=== PATIENT | male | born 1975 | race Caucasian/White ===

== ENCOUNTER 2019-05-28 13:28 | Inpatient (IN) | payer BC, OTHER ==
[~2019-05-28] VITALS: Ht 165.1 cm; Wt 55.7 kg
[~2019-05-28 13:28] MED LIST: NO HOME MEDS
--- NOTE | 2019-05-28 14:40 | NUR ---
PT HERE WITH FAMILY AND BOSS, [facility] AT 1307 PT HAD A WITNESSED SEIZURE LASTING APPROX. 1 MINUTE, BOSS DENIES PT HITTING HEAD AND INCONTINENCE. THIS RN AT BEDSIDE AND SEIZURE PADS APPLIED. PT STARTED CONVULSING, APPROX. 15 SECONDS, VITALS STABLE THROUGHOUT, NO INCONTINENCE OR ORAL TRAUMA, NO LOC, PT'S EYES REMAINED OPEN THE ENTIRE TIME. PT DRESSED IN GOWN AND ON FULL MONITOR, PIV ESTABLISHED AND LABS DRAWN. SIDERAIL X [address], ROOM AIR, NAD, PT CONFUSED TO LOCATION AND TIME, SUCTION AT BEDSIDE AND WITHIN REACH NEEDED.
[2019-05-28 14:52] LABS: BASOPHILS # (AUTO) 0.05 x10^3/uL (0-0.1); BASOPHILS % (AUTO) 1 % (0-1); EOSINOPHILS # (AUTO) 0.04 x10^3/uL (0-0.4); EOSINOPHILS % (AUTO) 1 % (1-7); LYMPHOCYTES # (AUTO) 1.38 x10^3/uL (1-3.4); LYMPHOCYTES % (AUTO) 20 % (22-44); MD NO; MEAN CORPUSCULAR HEMOGLOBIN 27.9 pg (27.5-34.5); MEAN CORPUSCULAR HGB CONC 33.2 g/dL (33.2-36.2); MEAN CORPUSCULAR VOLUME 83.8 fL (81-97); MEAN PLATELET VOLUME 7.9 fL (7.4-10.4); MONOCYTES # (AUTO) 0.41 x10^3/uL (0.2-0.8); MONOCYTES % (AUTO) 6 % (2-9); NEUTROPHILS # (AUTO) 5.15 x10^3/uL (1.8-6.8); NEUTROPHILS % (AUTO) 73 % (42-75); PLATELET COUNT 259 x10^3/uL (130-400); RED BLOOD COUNT 5.49 x10^6/uL (4.38-5.82); RED CELL DISTRIBUTION WIDTH 12.8 % (9.4-14.8)
--- NOTE | 2019-05-28 14:55 | NUR ---
MD AT BEDSIDE FOR EXAM. PT TO CT.
[2019-05-28 14:59] LABS: ALBUMIN 4.2 g/dL (3.4-5.0); ANION GAP 11 mmol/L (5-15); CHLORIDE 108 mmol/L (98-107); CREATININE 1.15 mg/dL (0.7-1.3)
[2019-05-28] MEDS ORDERED: HYDROcodone/APAP 5/325 TABLET PO ONE (15:00)
--- NOTE | 2019-05-28 15:26 | NUR ---
REPORT GIVEN TO NEIDA, CARE TRANSFERRED.
[2019-05-28] MEDS ORDERED: LEVETIRACETAM 1,000 MG in SODIUM CHLORIDE 0.9% 100 ML IV ONE (15:30)
[2019-05-28] MEDS ORDERED: LEVETIRACETAM 500 MG in SODIUM CHLORIDE 0.9% 100 ML IV ONE (16:00)
[2019-05-28] MEDS ORDERED: HYDROcodone/APAP 5/325 TABLET ONE (16:17)
[2019-05-28] MEDS ORDERED: KETOROLAC 30 MG/1 ML IVPush ONE (16:30)
[2019-05-28 16:47] LABS: AMPHETAMINE SCREEN, URINE Negative (Negative); BARBITURATE SCREEN, URINE Negative (Negative); BENZODIAZEPINE SCREEN, URINE Negative (Negative); CANNABINOID SCREEN, URINE Positive (Negative); COCAINE SCREEN, URINE Negative (Negative); METHADONE SCREEN, URINE Negative (Negative); OPIATE SCREEN, URINE Negative (Negative)
[2019-05-28] MEDS ORDERED: KETOROLAC 30 MG/1 ML ONE (16:48)
--- NOTE | 2019-05-28 17:15 | NUR ---
per report, pt has had 3 seizures since iv keppra started. pt currently a&ox4, able to move all extremities, speech clear. erp aware, orders placed.
--- NOTE | 2019-05-28 17:24 | NUR ---
report to cathie moore for med/tele
[2019-05-28] MEDS ORDERED: LORazepam 2 MG/ML, 1ML ONE (17:26)
[2019-05-28] MEDS ORDERED: LORazepam 2 MG/ML, 1ML IVPush ONE (17:30)
[2019-05-28 18:02] VITALS: BP 110/67
[2019-05-28 19:13] VITALS: BP 105/63
[2019-05-28] MEDS ORDERED: BUTALB/APAP/CAFFEINE 50MG/325MG/40MG PO PRN (21:30)
[2019-05-28] MEDS ORDERED: BISACODYL 10 MG SUPP PR PRN (21:30)
[2019-05-28] MEDS ORDERED: ONDANSETRON ODT 4 MG PO PRN (21:30)
[2019-05-28] MEDS ORDERED: POLYETHYLENE GLYCOL 17 GM PACKET PO PRN (21:30)
[2019-05-28] MEDS: SODIUM CHLORIDE FLUSH 10ML SYR IVF SCH (21:54)
[2019-05-29 02:10] VITALS: BP 108/60
[2019-05-29] MEDS: ACETAMINOPHEN 325 MG TABLET PO PRN ×2 (04:36→19:51)
[2019-05-29 06:45] VITALS: BP 103/56
[2019-05-29] MEDS: LEVETIRACETAM 500 MG TABLET PO SCH ×2 (08:48→19:51)
[2019-05-29] MEDS: SENNA/DOCUSATE TABLET PO SCH (08:49)
[2019-05-29] MEDS: SODIUM CHLORIDE FLUSH 10ML SYR IVF SCH ×2 (09:00→19:51)
[2019-05-29] MEDS ORDERED: LORazepam 2 MG/ML, 1ML IVPush PRN (09:00)
[2019-05-29] MEDS ORDERED: METHOCARBAMOL 750 MG TABLET PO PRN (12:30)
[2019-05-29 13:00] VITALS: BP 99/60
[2019-05-29] MEDS ORDERED: LIDODERM 5% PATCH TD ONE (13:00)
[2019-05-29] MEDS ORDERED: GADOTERATE 7.5 MMOL/15 ML SYR ONE (14:42)
[2019-05-29 21:26] VITALS: BP 94/56
[2019-05-30 01:35] VITALS: BP 102/60
[2019-05-30 05:59] LABS: CHLORIDE 110 mmol/L (98-107)
[2019-05-30 06:03] LABS: ANION GAP 6 mmol/L (5-15); CALCIUM 8.5 mg/dL (8.5-10.1)
[2019-05-30] MEDS ORDERED: DICL100G25 TP (07:50)
[2019-05-30] MEDS ORDERED: LEVE500T53 PO ×2 (07:50)
[2019-05-30 08:08] VITALS: BP 117/77
[2019-05-30] MEDS: SODIUM CHLORIDE FLUSH 10ML SYR IVF SCH (08:41)
[2019-05-30] MEDS: LEVETIRACETAM 500 MG TABLET PO SCH (08:41)
[2019-05-30] MEDS: SENNA/DOCUSATE TABLET PO SCH (08:42)
[2019-05-30] MEDS ORDERED: VALPROIC ACID 250 MG CAPSULE PO ONE (09:30)
[2019-05-30] MEDS ORDERED: DIVA-59 PO (10:56)
[2019-05-30] MEDS ORDERED: VALPROIC ACID 250 MG CAPSULE PO SCH (21:00)
== END 2019-05-30 11:16 | disposition home or self-care (01) | DRG 101 ==
LOC: ED 17:05 → EDIP 18:09 → 4WST 18:15 → DCLOUNGE 05-30 11:06
PROVIDERS: ADMIT Internal Medicine; ATTEND Hospitalist
DX: G40.901 Epilepsy, unspecified, not intractable, with status epilepticus (principal); E87.2 Acidosis; F12.90 Cannabis use, unspecified, uncomplicated; G43.809 Other migraine, not intractable, without status migrainosus; W18.39XA Other fall on same level, initial encounter; Z79.899 Other long term (current) drug therapy; Z72.0 Tobacco use; Y93.89 Activity, other specified; Y92.89 Other specified places as the place of occurrence of the external cause; Y99.8 Other external cause status; Z91.018 Allergy to other foods
CPT/HCPCS: 36415; 70450; 70553; 72125; 80048; 80307; 82040; 83605; 85025; 93005; 95812; 99285; G0378; J1885; J1953; Q0162; A9575; J2060